=== PATIENT | female | born 1945 | race Caucasian/White ===

== ENCOUNTER 2024-09-22 11:05 | Outpatient (CLI) | payer MEDICARE, SELFPAY ==
--- NOTE | ~2024-09-22 | XR_ITS ---
Cervical Spine: AP, lateral, open-mouth views Clinical History: Pain Findings: No acute fracture identified. There is 4 mm anterolisthesis of C2 over C3. There is 4 mm re trolisthesis of C3 over C4. There is mild grade 1 retrolisthesis of C4 over C5. There is severe degen erative disc narrowing at C3-C4, C4-C5, and C5-C6. There is moderate degenerative disc narrowing at C 2-C3 and C6-C7. There is moderate to advanced facet arthropathy throughout the cervical spine. No ins tability evident on flexion or extension. Pre-vertebral soft tissues are unremarkable. Impression: Severe degenerative spondylosis, with multiple grade 1 listheses at the upper cervical spine. Please see details above. Reviewed, dictated and finalized at location . Impression: Severe degenerative spondylosis, with multiple grade 1 listheses at the upper c ervical spine. Please see details above.
--- NOTE | ~2024-09-22 | US_ITS ---
EXAMINATION: US soft tissue UE RT DATE: 09/22/2024 11:25 INDICATION: Localized swelling, mass or lump at the lateral distal right upper arm TECHNIQUE: Multiple grayscale and Doppler ultrasound images of the region of the palpable abnormality at the lateral distal right upper arm were obtained. COMPARISON: None FINDINGS: 6.4 x 1.9 x 3.6 cm ovoid mass at the region of concern which is isoechoic and with identical echotext ure and internal septated architecture as the surrounding subcutaneous fat which would be most consis tent with a lipoma. The visualized underlying musculature appears normal. IMPRESSION: 1. Nonspecific 6.4 x 1.9 x 3.6 cm subcutaneous mass at the region of concern with appearance most con sistent with and statistically most likely to represent a lipoma. Reviewed, dictated and finalized at location A. IMPRESSION: 1. Nonspecific 6.4 x 1.9 x 3.6 cm subcutaneous mass at the region of concern wi th appearance most consistent with and statistically most likely to represent a lipoma.
== END 2024-09-22 11:06 | disposition home or self-care (01) ==
LOC: MICIMG 11:06
PROVIDERS: PCP Family Medicine; Visit Provider Family Medicine
DX: M47.892 Other spondylosis, cervical region (principal); R22.31 Localized swelling, mass and lump, right upper limb
CPT/HCPCS: 72050; 76882